=== PATIENT | female | born 1945 | race Caucasian/White ===

== ENCOUNTER 2019-06-11 10:12 | Observation (INO) | payer OTHER, SELFPAY ==
[2019-06-11] VITALS (12 sets, daily range): BP systolic 143–191; BP diastolic 50–94; PULSE 68–96; RESP 12–20; TEMP 36.3–37.3; O2SAT 94–98
--- NOTE | ~2019-06-11 | US_ITS ---
EXAMINATION: US carotid duplex BI DATE: 06/12/2019 08:11 INDICATION: Possible stroke TECHNIQUE: Grayscale, color Doppler, and pulsed Doppler images of the cervical carotid arteries were obtained. The degree of vessel stenosis is placed in one of the following categories: normal, <50%, 5 0-69%, >=70% but less than near-occlusion, near-occlusion, or total occlusion. Note that percent sten osis relative to normal distal artery lumen diameter is indirectly measured from velocity measurement s as described by Ismael, et al. Radiology 2003; [id number]. Notes: Normal: Peak systolic velocity <125 centimeters/sec and no plaque <50%. Peak systolic velocity <125 ( EDV <40; ICA/CCA PSV ratio <2.0; used these factors only a tandem lesions or low cardiac output or co ntralateral disease) 50-69 %: PSV 125-230 (EDV 40-100; ratio 2-4) >= 70% but less than near occlusion: PSV greater than 230 (EDV > 100; ratio> 4.0) Near Occlusion: PSV that is variable; markedly narrowed lumen Occlusion: Absent flow on color/spectral Doppler and no lumen on srivastava scale. COMPARISON: None. FINDINGS: RIGHT: The right common carotid artery (CCA) peak systolic velocity (PSV) is 73 cm/s. The right internal car otid artery (ICA) PSV is 105 cm/s. The right ICA end-diastolic velocity (EDV) is 19 cm/s. The right I CA/CCA PSV ratio is 1.4. The external carotid artery (ECA) PSV is 103 cm/s. There is antegrade flow i n the right vertebral artery. LEFT: The left CCA PSV is 83 cm/s. The left ICA PSV is 106 cm/s. The left ICA EDV is 20 cm/s. The left ICA/ CCA PSV ratio is 1.3. The ECA PSV is 76 cm/s. There is antegrade flow in the left vertebral artery. IMPRESSION: 1. Less than 50% stenosis in the right internal carotid artery by sonographic criteria. 2. Less than 50% stenosis in the left internal carotid artery by sonographic criteria. Reviewed, dictated and finalized at location D. ING MANAGER IMPRESSION: 1. Less than 50% stenosis in the right internal carotid artery by sonographic roosevelt umanzor. 2. Less than 50% stenosis in the left internal carotid artery by sonographic carole carl.
--- NOTE | ~2019-06-11 | US_ITS ---
EXAMINATION: US venous doppler UE RT DATE: 06/11/2019 13:55 INDICATION: Right arm swelling TECHNIQUE: Babin scale images with and without compression and Doppler images of the right upper extre mity veins were obtained. COMPARISON: None. FINDINGS: The right internal jugular vein, subclavian vein, axillary vein, brachial veins, basilic vein, cephal ic vein, radial vein, and ulnar vein are patent.] IMPRESSION: 1. Patent right upper extremity veins. No evidence of deep venous thrombosis. Reviewed, dictated and finalized at location B. SCIENCE AND PLANNING
--- NOTE | ~2019-06-11 | CT_ITS ---
EXAMINATION: CT brain wo con DATE: 06/11/2019 13:54 INDICATION: Arm weakness. TECHNIQUE: Computed tomography (CT) of the head was performed without intravenous contrast. The mA wa s adjusted according to patient size. Iterative reconstruction technique was employed. The dose-lengt h product was 605.33 mGy-cm. COMPARISON: Brain MRI 03/27/2019 FINDINGS: There are areas of low-attenuation in the frontal lobes involving the subcortical and deep white matter. There are areas of low-attenuation in the left frontoparietal region and left temporal occipital region. There is no intracranial hemorrhage. The ventricles are normal in size. The orbits are normal. There are small bilateral mastoid effusions. The paranasal sinuses are clear. IMPRESSION: 1. New areas of low-attenuation in the left frontoparietal region and left temporal occipital region suspicious for acute infarct versus pathogenic edema from metastatic disease. Brain MRI without and w ith contrast is recommended. 2. New areas of low-attenuation in the frontal lobes suspicious for vasogenic edema from metastatic d isease. Reviewed, dictated and finalized at location A. TY NURSE IMPRESSION: 1. New areas of low-attenuation in the left frontoparietal region and left temp oral occipital region suspicious for acute infarct versus pathogenic edema from metastatic disease. Brain MRI without and with contrast is recommended. 2. New areas of low-attenuation in the frontal lobes suspicious for vasogenic e frank from metastatic disease.
--- NOTE | ~2019-06-11 | MR_ITS ---
EXAMINATION: MR brain/brain stem wo/w con DATE: 06/12/2019 07:39 INDICATION: Brain masses. TECHNIQUE: Magnetic resonance imaging (MRI) of the brain and brainstem was performed without and with 10 mm MultiHance intravenous contrast. Sequences included sagittal and axial T1-weighted FSE, axial diffusion-weighted FS EPI, axial T2*-weighted GRE, axial T2-weighted FLAIR Propeller, and axial T2-we ighted Propeller. Postcontrast sequences included axial, sagittal, and coronal T1-weighted FSE. Appar ent diffusion coefficient (ADC) maps were created. COMPARISON: Brain MRI 03/27/2019, head CT 06/11/2019 FINDINGS: There are 6 ring-enhancing lesions in the brain measuring up to 10 mm with surrounding vaso genic edema. There are a few other areas of nonspecific increased T2-weighted signal intensity in the cerebral white matter and galileo, which is within normal limits for the patient's age. There is no acu te ischemic infarct or intracranial hemorrhage. The ventricles are normal in size. There is a small l eft mastoid effusion. There is mild mucosal thickening in the ethmoid sinuses. There are likely medina es of ocular lens replacement surgeries. IMPRESSION: 1. 6 brain masses, worsened from 03/27/2019, consistent with metastatic disease. Reviewed, dictated and finalized at location A. ORGANIZATIONAL DEVELOPMENT IMPRESSION: 1. 6 brain masses, worsened from 03/27/2019, consistent with metastatic disease .
[2019-06-11 11:06] LABS: Basophils Absolute Auto 0.1 K/mm3 (0.0-0.1); Basophils Percent Auto 0.6 % (0.2-1.2); Eosinophils Absolute Auto 0.2 K/mm3 (0-0.3); Eosinophils Percent Auto 1.5 % (0-4.4); Hematocrit 45.2 % (37.0-47.0); Immature Granulocyte Absolute 0.05 K/mm3 (0.00-0.031); Immature Granulocyte Percent A 0.5 % (0-0.5); Lymphocytes Absolute Auto 1.12 K/mm3 (0.9-3.2); Lymphocytes Percent Auto 10.9 % (18.3-44.2); Mean Corpuscular HGB Conc 33.2 g/dl (32-36); Mean Corpuscular Volume 90.4 fl (80-100); Mean Platelet Volume 10.1 fl (7.4-10.4); Monocytes Absolute Auto 0.9 K/mm3 (0.1-0.6); Monocytes Percent Auto 8.5 % (2.6-8.5); Platelet Count Result 328 k/mm3 (150-375); Red Cell Distribution Width 12.6 % (11.5-14.5); White Blood Count 10.2 K/mm3 (4.5-10.0)
[2019-06-11 11:18] LABS: Alanine Aminotransferase 23 U/L (4-35); Albumin Level 4.6 g/dL (3.5-5.1); Alkaline Phosphatase 93 U/L (38-126); Aspartate Amino Transferase 25 U/L (14-36); Bilirubin,Total 0.5 mg/dL (0.2-1.3); Blood Urea Nitrogen 8 mg/dL (7-17); Calcium 10.9 mg/dL (8.4-10.2); Carbon Dioxide 28 mmol/L (22-30); Chloride 96 mmol/L (98-107); Estimated CRCL calculation 73 ml/min; Estimated Glomerular Filt Rate > 60; Glucose 110 mg/dL (65-105); Potassium 3.6 mmol/L (3.4-5.0); Sodium 135 mmol/L (137-145)
[2019-06-11 11:23] LABS: Partial Thromboplastin Time 26.8 SECONDS (22.3-36.8)
--- NOTE | 2019-06-11 13:14 | ED.NEUROSD ---
HPI - Neuro Symptoms/Deficit General Chief Complaint: Neuro Symptoms/Deficit Stated Complaint: heavy arm - started yesterday Time Seen by Provider: 06/11/19 13:08 Source: patient and RN notes reviewed Mode of arrival: ambulatory Limitations: no limitations History of Present Illness HPI Narrative: A 73 y/o female presents to the ED with worsening rt hand stiffness and weakness for the past 4 days. She states that on Tuesday that her rt hand stopped working and every since she hasn't been able to hold anything with it. She reports some mild rt hand swelling and upper rt arm pain beginning today, so she decided to come to the ED to be evaluated. She notes that she recently finished abx for pneumonia and that she has lung CA and another type of cancer that she is not being treated for. She denies any fevers, chills, SOB, wheezing, CP, leg pain, leg swelling, N/V/D, or ABD pain. Onset (ago): day(s) (4) Location: other (rt hand) Quality: weak and other (stiff) Associated symptoms: other (mild rt hand swelling and upper rt arm pain) Related Data Home Medications Medication Instructions Recorded Confirmed albuterol sulfate 90 mcg/actuation 2 puff INHALATION Q4H PRN gm 05/03/19 aerosol inhaler amlodipine 10 mg tablet 10 mg PO DAILY 05/03/19 cholecalciferol (vitamin D3) 400 400 unit PO DAILY 05/03/19 unit capsule multivitamin 1 tablet PO DAILY 05/03/19 Allergies Allergy/AdvReac Type Severity Reaction Status Date / Time lisinopril Allergy Mild Hives / Verified 05/17/19 15:13 Red Face losartan Allergy Mild Hives / Verified 05/17/19 15:13 Red Face cortisone Allergy Unknown Verified 05/17/19 15:13 Review of Systems Review of Systems: All systems reviewed & are unremarkable except as noted in HPI and below Constitutional: Constitutional: Denies chills and Denies fever(s) Cardiovascular: Cardiovascular: Denies chest pain, Reports edema (mild rt hand) and Denies leg edema Respiratory: Respiratory: Denies dyspnea and Denies wheezing Gastrointestinal: Gastrointestinal: Denies abdominal pain, Denies diarrhea, Denies nausea and Denies vomiting Musculoskeletal: Musculoskeletal: Reports other (upper rt arm pain. Denies: leg pain.) Neurologic: Reports focal weakness (and stiffness - rt hand) PMFSH Past Medical History Medical History Asthma Cataracts, bilateral H/O: HTN (hypertension) History of pneumonia Surgical History Surgical History Hx of bilateral cataract extraction Family History Family History Sibling Family history of thyroid disease Father Hypertension Family history of coronary artery disease Family history of heart disease in male family member before age 55 Mother Cerebrovascular accident Family history of heart disease in male family member before age 55 Social History Social History (Updated 06/11/19 @ 15:25 by Toni Negrete) Smoking status: Former smoker Smoking end date: 05/30/03 Alcohol intake: current Gender identity (if verbalized by the patient): Female Comments PCP: Dr. Cruz. Exam Const: General: healthy appearing, no acute distress and alert Nutritional Appearance: well nourished Orientation/consciousness: oriented x3 HENMT: Head: normal to inspection Mouth: Yes lip normal and Yes moist mucous membranes Eyes: Conjunctivae: conjunctivae normal Pupils: PERRL Resp: Effort & Inspection: normal respiratory effort Auscultation: clear to auscultation bilaterally Cardio: Rate: regular rate Rhythm: regular rhythm Heart sounds: no murmurs GI: GI Palp: Yes soft and No tender Auscultation: normal bowel sounds Back/Spine/Pelvis: Other: Full ROM. Skin: General skin exam: normal color, dry skin and other (warm, appears tighter on rt hand when the pt makes a fist compared to lt) Neuro:
[2019-06-11 14:02] LABS: INR 0.9; Prothrombin Time 11.9 Seconds (11.1-14.7)
--- NOTE | 2019-06-11 18:45 | ADMGEN ---
This patient, Lupe Amin, was admitted to Medical Room 245-. Patient/family oriented to hospital policies and general routines including ID bracelet, bed and alarms, visiting hours, pain management, procedures, bathroom and other care routines, personal items, smoking policy, room service/diet, and visiting hours. Valuables list has been completed. Information on how to activate the Rapid Response Team has been discussed. Patient/Family are encouraged to report perceived risks to care and to ask questions if they do not understand what they are told or what they should do.
--- NOTE | 2019-06-11 20:05 | PM.IMHP ---
H&P: HPI History of Present Illness Chief complaint: Right hand weakness. Narrative: Lupe Amin is a 73 year old female with COPD, hypertension, and lung cancer and vulvar cancer which she has opted not to treat who presented to the emergency department earlier this afternoon for evaluation of right hand weakness. Last Tuesday she felt like her right hand was not working as normal, and attributed that to sleeping on her arm wrong. Unfortunately, it did not improve and she notes decreased dexterity to the point where she can't even hold a pen in that hand to write. She also has some mild weakness in the right wrist. Brain CT showed findings concerning for metastatic disease with surrounding vasogenic edema, and she is being admitted in this setting. At the time my evaluation, she reports no change in her condition. She denies vertigo, auditory and visual changes, paresthesias, chest pain, palpitations, slurred speech, and facial asymmetry. Initially she wanted to be discharged home, but has decided that she wants to go ahead and have the MRI to see exactly what these spots are on imaging. We had a pretty lengthy discussion regarding her vulvar and lung cancers. When she was initially diagnosed with lung cancer, she met with Dr. Lawson who recommended chemotherapy and radiation. In light of the vulvar cancer, in which her gynecologic oncologist recommended against further treatment, she decided not to treat the lung cancer. She admits that she does not really understand treatment options with either of her cancers, nor her expected outcome and believes that she wants a 2nd opinion. At the time my evaluation, she has no complaints. Review of Systems Review of Systems: Narrative: Twelve systems were reviewed with pertinent positives and negatives as per HPI. She was recently treated for pneumonia, with symptoms essentially resolved. She has intermittent right ankle and foot edema, which is chronic and unchanged. Weight has remained stable. Her appetite is okay. No nausea, vomiting, or diarrhea. Except as documented, all other systems were reviewed and are negative. [facility] Past Medical History Medical History (Updated 06/11/19 @ 22:45 by Melvi López PA-C) Asthma Cataracts, bilateral COPD (chronic obstructive pulmonary disease) PFTs in December 2012 showed severe obstructive ventilatory defect with an acute bronchodilator response. Essential hypertension History of cardiovascular stress test Unremarkable stress in December 2012. History of pneumonia Lung cancer Biopsy January 22, 2019 consistent with non-small cell carcinoma, favor adenocarcinoma. Biopsy showed high expression of PD L1 and positive Kras mutation. PET scan 03/27/2019 revealed a 4.1 x 2.6 centimeter mass in the right lower lung with increased activity and mediastinal lymphadenopathy with increased activity consistent with metastatic disease. Brain MRI 03/27/2019 showed a small focus of left cortical enhancement on 1 sequence, recommend 3 month follow-up. She was previously seen by Dr. Lawson, but has opted out of treatment. Vulvar cancer Surgical History Surgical History (Updated 06/11/19 @ 20:12 by Melvi López PA-C) History of section Hx of bilateral cataract extraction Family History Family History Sibling Family history of thyroid disease Father Hypertension Family history of coronary artery disease Family history of heart disease in male family member before age 55 Mother Cerebrovascular accident Family history of heart disease in male family member before age 55 Social History Social History Social History: Patient is lives with her in [place]. She designates her , Elliot, as her surrogate decision maker. She wishes to be do not resuscitate. Her primary care provider is Dr. Cruz. She
[2019-06-11] MEDS: METOPROLOL TARTRATE 25 MG TABLET PO (23:15)
[2019-06-12 00:42] VITALS: PULSE 78
[2019-06-12 04:00] VITALS: PULSE 72
[2019-06-12 05:56] VITALS: BP 135/64; PULSE 75; RESP 16; TEMP 35.7; O2SAT 93
[2019-06-12] MEDS: DEXAMETHASONE SOD PHOS INJ 4 MG/ML VIAL IV PUSH ×2 (05:58→11:06)
[2019-06-12 08:21] VITALS: PULSE 95
[2019-06-12] MEDS: hydroCHLOROthiazide 25 MG TABLET PO (08:23)
[2019-06-12] MEDS: AMLODIPINE BESYLATE 5 MG TABLET 10 MG PO (08:23)
[2019-06-12] MEDS: CHOLECALCIFEROL 1,000 UNIT TABLET 2000 UNITS PO (08:23)
[2019-06-12 08:24] VITALS: PULSE 75
[2019-06-12] MEDS: MULTIVITAMINS THERAPEUTIC TAB (*BKC) 1 TABLET PO (08:24)
[2019-06-12] MEDS: METOPROLOL TARTRATE 25 MG TABLET PO (08:24)
--- NOTE | 2019-06-12 09:50 | PHAR ---
[facility] MED VERIFIED ONE PUFF DAILY
[2019-06-12 12:00] VITALS: PULSE 89
--- NOTE | 2019-06-12 12:16 | P.DS_ITS ---
DS: Diagnosis Admitting Diagnosis Admitting Diagnosis: Other abnormal findings on diagnostic imaging of central ne rvous system Discharge Diagnosis (1) Abnormal brain CT: Code(s): R90.89 - Other abnormal findings on diagnostic imaging of central nervous system Status: Acute Assessment and Plan: * Brain CT shows areas of low attenuation in the left frontoparietal region and left temporal occipital region suspicious for infarct verses pathogenic edema from metastatic disease as well as areas of low attenuation in the frontal lobe suspicious for vasogenic edema from metastatic disease. MRI today shows 6 brain masses, worsened from 03/27/19, consistent with metastatic disease * The patient has opted out of treating her vulvar and lung cancers, but wishes to pursue a 2nd opinion at [place]. * Will continue Decadron 4 mg at Q8 hours for [address] Suarez recommendations * F/u with Dr. Suarez and with PCP, and establish with [facility] [place] physician as outpatient (2) Right hand weakness: Code(s): R29.898 - Other symptoms and signs involving the musculoskeletal system Status: Acute Assessment and Plan: * Secondary to findings above. * Likely these are metastases with surrounding edema. * Patient started on Decadron, and will continue as stated above. (3) Lung cancer: Qualifiers: Laterality: right Lung location: lower lobe of lung Qualified Code(s): C34.31 - Malignant neoplasm of lower lobe, right bronchus or lung Code(s): C34.90 - Malignant neoplasm of unspecified part of unspecified bronchus or lung Status: Acute Assessment and Plan: * PET scan last fall showed evidence of metastatic disease to the lymph nodes. * The patient had opted not to treat this malignancy as she was offered chemotherapy and radiation. * She is wishing to have a 2nd opinion at [place] to see if immunotherapy may be possible. * Continue f/u as outpatient for further workup/management with PCP and/or [facility] physician (4) Vulvar cancer: Code(s): C51.9 - Malignant neoplasm of vulva, unspecified Status: Acute Assessment and Plan: * Her gynecologic oncologist at [facility] suggested that she does not further treat, as it would require radical vulvectomy and he did not think that would change her outcome. (5) COPD (chronic obstructive pulmonary disease): Qualifiers: COPD type: emphysema Emphysema type: unspecified Qualified Code(s): J43.9 - Emphysema, unspecified Code(s): J44.9 - Chronic obstructive pulmonary disease, unspecified Status: Acute Assessment and Plan: * No acute issues, continue home respiratory regimen. (6) Essential hypertension: Code(s): I10 - Essential (primary) hypertension Status: Acute Assessment and Plan: * Blood pressures were reviewed. 130s sys today * They were running high during stay, likely due to anxiety. * Will continue antihypertensives at discharge * F/u with PCP as outpatient DS: Summary Hospital Course Reason for hospitalization: Right hand weakness; Suspicious findings on Brain CT for metastatic disease from known lung and vulvar cancer Hospital Course: Patient is a 73 yo F with COPD, HTN, and known lung cancer and vulvar cancer (opted not to treat) who presented t
--- NOTE | 2019-06-12 12:16 | PM.DS ---
DS: Diagnosis Admitting Diagnosis Admitting Diagnosis: Other abnormal findings on diagnostic imaging of central nervous system Discharge Diagnosis (1) Abnormal brain CT: Code(s): R90.89 - Other abnormal findings on diagnostic imaging of central nervous system Status: Acute Assessment and Plan: Brain CT shows areas of low attenuation in the left frontoparietal region and left temporal occipital region suspicious for infarct verses pathogenic edema from metastatic disease as well as areas of low attenuation in the frontal lobe suspicious for vasogenic edema from metastatic disease. MRI today shows 6 brain masses, worsened from 03/27/19, consistent with metastatic disease The patient has opted out of treating her vulvar and lung cancers, but wishes to pursue a 2nd opinion at [place]. Will continue Decadron 4 mg at Q8 hours for [address] Suarez recommendations F/u with Dr. Suarez and with PCP, and establish with [facility] physician as outpatient (2) Right hand weakness: Code(s): R29.898 - Other symptoms and signs involving the musculoskeletal system Status: Acute Assessment and Plan: Secondary to findings above. Likely these are metastases with surrounding edema. Patient started on Decadron, and will continue as stated above. (3) Lung cancer: Qualifiers: Laterality: right Lung location: lower lobe of lung Qualified Code(s): C34.31 - Malignant neoplasm of lower lobe, right bronchus or lung Code(s): C34.90 - Malignant neoplasm of unspecified part of unspecified bronchus or lung Status: Acute Assessment and Plan: PET scan last fall showed evidence of metastatic disease to the lymph nodes. The patient had opted not to treat this malignancy as she was offered chemotherapy and radiation. She is wishing to have a 2nd opinion at [place] to see if immunotherapy may be possible. Continue f/u as outpatient for further workup/management with PCP and/or [facility] physician (4) Vulvar cancer: Code(s): C51.9 - Malignant neoplasm of vulva, unspecified Status: Acute Assessment and Plan: Her gynecologic oncologist at [facility] suggested that she does not further treat, as it would require radical vulvectomy and he did not think that would change her outcome. (5) COPD (chronic obstructive pulmonary disease): Qualifiers: COPD type: emphysema Emphysema type: unspecified Qualified Code(s): J43.9 - Emphysema, unspecified Code(s): J44.9 - Chronic obstructive pulmonary disease, unspecified Status: Acute Assessment and Plan: No acute issues, continue home respiratory regimen. (6) Essential hypertension: Code(s): I10 - Essential (primary) hypertension Status: Acute Assessment and Plan: Blood pressures were reviewed. 130s sys today They were running high during stay, likely due to anxiety. Will continue antihypertensives at discharge F/u with PCP as outpatient DS: Summary Hospital Course Reason for hospitalization: Right hand weakness; Suspicious findings on Brain CT for metastatic disease from known lung and vulvar cancer Hospital Course: Patient is a 73 yo F with COPD, HTN, and known lung cancer and vulvar cancer (opted not to treat) who presented to the ER on 06/11 with complaints of right hand weakness. Brain CT in ED showed suspicious findings for possible metastatic disease with vasogenic edema. In regards to her known cancers, should opted not to treat at time of diagnosis and wished to seek a second opinion at [facility]. Please see H&P for further details Presnting VS: BP159/67, HR 89, RR 16, temp 98.2, sat 97% RA Presenting Pertinent l
--- NOTE | 2019-06-12 14:07 | CONS_ITS ---
DATE OF CONSULTATION: 06/12/2019 HISTORY: This 73 years old right-handed female has been admitted to [facility] through the emergency room for the complaints of right hand weakness with a history of underlying 1. COPD. 2. Hypertension. 3. Carcinoma of the lung. 4. Vulvar cancer for which she has not opted to treat. She came to the emergency room for the complaints of right hand weakness since last Tuesday, which initially she attributed to sleeping on her arm, but when it did not improve, she came to the hospital. Initial CT scan in the emergency room was questionable for the possibility of the metastatic disease with surrounding vasogenic edema, but by the time she was seen by the hospitalist, there was no change in her condition. Initially, she wanted to be discharged, but then she got the MRIs done. She has refused the chemotherapy and radiation treatment in the past. Spinning Doffer has recommended again further treatment. She does not understand the treatment option given to her in the past. At present, she wants to have a second opinion. She does have ongoing history of bronchial asthma, COPD, hypertension, carcinoma of the lung, and vulvar cancer. As for the carcinoma of the lung is concerned, biopsy was done on January 22, 2019, consistent with a non-small cell carcinoma. PET scan was positive with a 4.1 x 2.6 cm mass in the right lower lung and mediastinal lymphadenopathy. MRI in February 2019, was with small focus of left cortical enhancement. She has undergone and bilateral cataract extraction also, has history of cardiovascular disease in the family, but no mention about the cancer. SOCIAL HISTORY: She has a 40-pack year smoking history, quit in 2003. Drinks 1 to 2 glass of wine a day. Does not take any drugs. PHYSICAL EXAMINATION: GENERAL: She is awake, alert, and cooperative, in no obvious acute distress. HEAD: Normocephalic with no cranial bruit. Ear, nose, throat examination normal. NECK: Supple with no cervical bruit. No thyromegaly. No lymphadenopathy. HEART: Regular. LUNGS: With the crackles on the right side. ABDOMEN: Soft. Normal bowel sounds. SKIN: Normal. EXTREMITIES: Normal. NEUROLOGICAL: She is awake, alert, and oriented. Speech not dysphasic, not dysarthric. Pupils round and regular. Shaw of vision full. Extraocular movements full. Face symmetrical. Tongue midline. Motor examination revealed her to have the right upper extremity paresis 4/5 strength with hyperreflexia and questionably upgoing plantar response. IMPRESSION AND PLAN: Ongoing history of the malignancy for which the patient has refused the treatment in the past, but at this stage, she would like to have the second opinion, but she is extremely concerned about the insurance, which is essence. I advised her to discuss with the coordinator if she is eligible to go to the oncology center either at [facility] or [facility] or [facility], she can be transferred there or else she can go as an outpatient before she decides with no treatment. Neurologically otherwise I had started on Decadron in the emergency room. They can continue their treatment until further decisions are made. ARACELI LAMB M.D. SMOKING TOBACCO PACKING MACHINE HAND SMOKING TOBACCO PACKING MACHINE HAND D Jos MT: Anel
== END 2019-06-12 13:25 | disposition home or self-care (01) ==
LOC: ANHED 16:09 → ANH2MED 16:44
PROVIDERS: General Practice; Admitting Provider Family Medicine; Emergency Provider Emergency Medicine; PCP Internal Medicine; Visit Provider Family Medicine
DX: R90.89 Other abnormal findings on diagnostic imaging of central nervous system (principal); R29.898 Other symptoms and signs involving the musculoskeletal system; R53.1 Weakness; C34.90 Malignant neoplasm of unspecified part of unspecified bronchus or lung; C77.1 Secondary and unspecified malignant neoplasm of intrathoracic lymph nodes; C51.9 Malignant neoplasm of vulva, unspecified; J43.9 Emphysema, unspecified; I10 Essential (primary) hypertension; M79.89 Other specified soft tissue disorders; Z66 Do not resuscitate; Z87.891 Personal history of nicotine dependence; R60.9 Edema, unspecified; I65.23 Occlusion and stenosis of bilateral carotid arteries
CPT/HCPCS: 36415; 70450; 70553; 80053; 85025; 85610; 85730; 93880; 93971; 96374; 96376; 99285; A9270; A9577; G0378; J1100